=== PATIENT | female | born 1995 | race Caucasian/White ===

== ENCOUNTER 2017-02-22 00:05 | Emergency (ER) | payer SELFPAY ==
[~2017-02-22] VITALS: Ht 177.8 cm; Wt 95.5 kg
[2017-02-22 00:05] VITALS: TEMP 97.3
[2017-02-22 00:51] LABS: BASO # 0.1 (0.0-0.2); BASO % 1.1 % (0.0-2.0); EOS # 0.5 (0.0-0.7); EOS % 5.4 % (0-4.0); GRAN # 4.8 (1.4-6.5); GRAN % 50.9 % (42.2-75.2); HEMATOCRIT 37.1 % (35.0-45.0); HEMOGLOBIN 12.1 g/dl (12.0-15.0); LYMPH # 3.3 (1.2-3.4); LYMPH % 34.5 % (20.0-51.0); MEAN CELL VOLUME 92 fl (80.0-95.0); MEAN CORPUSCULAR HEMOGLOBIN 30 pg (26.0-32.0); MEAN CORPUSCULAR HGB CONC 33 g/dl (33.0-37.0); MEAN PLATELET VOLUME 9.8 fl (7.4-10.4); MONO # 0.7 (0.1-0.6); MONO % 7.7 % (1.7-9.3); PLATELET COUNT 255 K/mm3 (130-400); RED BLOOD COUNT 4.03 M/mm3 (4.10-5.30); WHITE BLOOD COUNT 9.5 K/mm3 (4.8-10.8)
[2017-02-22 01:04] LABS: ADJUSTED CALCIUM 8.7 mg/dL (8.4-10.2); ALBUMIN 3.6 gm/dL (3.5-5.0); BILIRUBIN,TOTAL 0.4 mg/dL (0.0-1.0); CALCIUM 8.4 mg/dL (8.4-10.2); CREATININE, serum 0.74 mg/dL (0.52-1.25); POTASSIUM 3.1 mmol/L (3.4-5.0); TOTAL PROTEIN 6.3 gm/dL (6.4-8.2)
[2017-02-22] MEDS ORDERED: CELEXA 20MG20 MG/TAB PO (01:10)
[2017-02-22 03:20] VITALS: BP 131/71; PULSE 77
== END 2017-02-22 03:07 | disposition home or self-care (01) ==
LOC: COL.ER 00:05
PROVIDERS: Emergency Medicine
DX: F10.129 Alcohol abuse with intoxication, unspecified (principal)
CPT/HCPCS: J7030

== ENCOUNTER 2017-11-11 12:48 | Emergency (ER) | payer OTHER ==
[~2017-11-11] VITALS: Ht 180.3 cm; Wt 95.5 kg
[~2017-11-11 12:48] MED LIST: CELEXA 20MG20 MG/TAB PO
[2017-11-11 12:50] VITALS: BP 129/72; PULSE 95; TEMP 97.8
[2017-11-11] MEDS ORDERED: MIRENA52 MG IY (13:05)
[2017-11-11] MEDS ORDERED: BACTRIM DS 8001 TAB PO (13:38)
== END 2017-11-11 13:46 | disposition home or self-care (01) ==
LOC: COL.ER 12:48
DX: L05.01 Pilonidal cyst with abscess (principal); F41.9 Anxiety disorder, unspecified; F32.9 Major depressive disorder, single episode, unspecified

== ENCOUNTER 2018-03-21 10:28 | Emergency (ER) | payer OTHER ==
[~2018-03-21] VITALS: Ht 175.3 cm; Wt 104.5 kg
[~2018-03-21 10:28] MED LIST changes: +BACTRIM DS 8001 TAB PO; +MIRENA52 MG IY
[2018-03-21 10:30] VITALS: BP 131/58; TEMP 99.5
[2018-03-21 11:28] VITALS: PULSE 99
== END 2018-03-21 11:28 | disposition home or self-care (01) ==
LOC: COL.ER 10:28
DX: L05.01 Pilonidal cyst with abscess (principal); Z98.818 Other dental procedure status

== ENCOUNTER 2018-06-01 08:25 | Day surgery (SDC) | payer OTHER ==
[~2018-06-01] VITALS: Ht 177.8 cm; Wt 106.3 kg
[2018-06-01 08:47] VITALS: BP 103/68; PULSE 92; TEMP 98.2
[2018-06-01] MEDS ORDERED: MOTRIN 600600 MG/TAB PO (12:04)
[2018-06-01] MEDS ORDERED: NORCO 325 MG-51 TAB PO (12:04)
[2018-06-01] MEDS ORDERED: COLACE 100100 MG/CAP PO (12:04)
[2018-06-01 12:37] VITALS: BP 110/49; PULSE 70; TEMP 97.9
[2018-06-01 13:00] VITALS: BP 112/61; PULSE 68
[2018-06-01 13:15] VITALS: BP 108/60; PULSE 74
== END 2018-06-01 13:40 | disposition home or self-care (01) ==
LOC: SDCO 08:25
DX: L05.01 Pilonidal cyst with abscess (principal); D64.9 Anemia, unspecified; F32.9 Major depressive disorder, single episode, unspecified; F41.9 Anxiety disorder, unspecified; F42.9 Obsessive-compulsive disorder, unspecified; M41.9 Scoliosis, unspecified
CPT/HCPCS: J1885; J2405; J2704; J3010; J7120

== ENCOUNTER 2018-06-06 11:01 | Emergency (ER) | payer OTHER ==
[~2018-06-06] VITALS: Ht 177.8 cm; Wt 104.5 kg
[~2018-06-06 11:01] MED LIST changes: +COLACE 100100 MG/CAP PO; +MOTRIN 600600 MG/TAB PO; +NORCO 325 MG-51 TAB PO
[2018-06-06 11:05] VITALS: BP 123/69; TEMP 98.1
[2018-06-06] MEDS ORDERED: BACTRIM DS 8001 TAB PO (11:29)
[2018-06-06 11:36] VITALS: PULSE 94
== END 2018-06-06 11:37 | disposition home or self-care (01) ==
LOC: COL.ER 11:01
DX: M25.559 Pain in unspecified hip (principal); F32.9 Major depressive disorder, single episode, unspecified

== ENCOUNTER 2018-07-18 12:10 | Emergency (ER) | payer OTHER ==
[~2018-07-18] VITALS: Ht 177.8 cm; Wt 104.5 kg
[2018-07-18 12:12] VITALS: TEMP 98.6
[2018-07-18 12:38] LABS: BASO # 0.1 (0.0-0.2); BASO % 0.9 % (0.0-2.0); EOS # 0.2 (0.0-0.7); EOS % 2.2 % (0-4.0); GRAN # 3.9 (1.4-6.5); GRAN % 57.2 % (42.2-75.2); HEMOGLOBIN 12.5 g/dl (12.0-15.0); LYMPH # 2.2 (1.2-3.4); LYMPH % 31.9 % (20.0-51.0); MEAN CELL VOLUME 91 fl (80.0-95.0); MEAN CORPUSCULAR HEMOGLOBIN 31 pg (26.0-32.0); MEAN CORPUSCULAR HGB CONC 34 g/dl (33.0-37.0); MEAN PLATELET VOLUME 9.5 fl (7.4-10.4); MONO # 0.5 (0.1-0.6); MONO % 7.5 % (1.7-9.3); PLATELET COUNT 246 K/mm3 (130-400); RED BLOOD COUNT 4.05 M/mm3 (4.10-5.30); REDCELL DISTRIBUTION WIDTH-CV 11.9 % (11.5-14.5)
[2018-07-18 12:49] LABS: ALANINE AMINOTRANSFERASE 17 U/L (9-52); ALBUMIN 3.6 gm/dL (3.5-5.0); ALKALINE PHOSPHATASE 58 U/L (50-136); ANION GAP 8 mmol/L (7-16); AST,SGOT 19 U/L (15-37); BILIRUBIN,TOTAL 0.4 mg/dL (0.0-1.0); BLOOD UREA NITROGEN 16 mg/dL (7-17); C-REACTIVE PROTEIN < 0.5 mg/dL (0.0-0.9); CALCIUM 9.1 mg/dL (8.4-10.2); CARBON DIOXIDE 24 mmol/L (22-30); CHLORIDE 108 mmol/L (98-107); CREATININE, serum 0.79 mg/dL (0.52-1.25); GLUCOSE 85 mg/dL (74-106); POTASSIUM 3.8 mmol/L (3.4-5.0); SODIUM 139 mmol/L (137-145); TOTAL PROTEIN 6.5 gm/dL (6.4-8.2)
[2018-07-18 13:21] VITALS: BP 122/62; PULSE 60
== END 2018-07-18 13:22 | disposition home or self-care (01) ==
LOC: COL.ER 12:10
PROVIDERS: Physician Assistant
DX: R55 Syncope and collapse (principal)

== ENCOUNTER 2018-07-23 19:05 | Emergency (ER) | payer OTHER ==
[~2018-07-23] VITALS: Ht 177.8 cm; Wt 104.5 kg
[2018-07-23 19:07] VITALS: TEMP 98
[2018-07-23 19:41] LABS: BASO # 0.1 (0.0-0.2); BASO % 0.7 % (0.0-2.0); EOS # 0.2 (0.0-0.7); EOS % 1.7 % (0-4.0); GRAN # 5.8 (1.4-6.5); GRAN % 62.5 % (42.2-75.2); HEMATOCRIT 39.5 % (35.0-45.0); HEMOGLOBIN 13.3 g/dl (12.0-15.0); LYMPH # 2.6 (1.2-3.4); LYMPH % 28.2 % (20.0-51.0); MEAN CELL VOLUME 92 fl (80.0-95.0); MEAN CORPUSCULAR HEMOGLOBIN 31 pg (26.0-32.0); MEAN CORPUSCULAR HGB CONC 34 g/dl (33.0-37.0); MEAN PLATELET VOLUME 9.5 fl (7.4-10.4); MONO # 0.6 (0.1-0.6); MONO % 6.6 % (1.7-9.3); PLATELET COUNT 282 K/mm3 (130-400); REDCELL DISTRIBUTION WIDTH-CV 11.9 % (11.5-14.5)
[2018-07-23 19:58] LABS: ALANINE AMINOTRANSFERASE 19 U/L (9-52); ALBUMIN 4.1 gm/dL (3.5-5.0); ALKALINE PHOSPHATASE 67 U/L (50-136); ANION GAP 7 mmol/L (7-16); AST,SGOT 21 U/L (15-37); BILIRUBIN,TOTAL 0.3 mg/dL (0.0-1.0); BLOOD UREA NITROGEN 13 mg/dL (7-17); CALCIUM 9.6 mg/dL (8.4-10.2); CARBON DIOXIDE 25 mmol/L (22-30); CHLORIDE 105 mmol/L (98-107); CREATININE, serum 0.76 mg/dL (0.52-1.25); GLUCOSE 97 mg/dL (74-106); POTASSIUM 3.9 mmol/L (3.4-5.0); SODIUM 137 mmol/L (137-145); TOTAL PROTEIN 7.3 gm/dL (6.4-8.2)
[2018-07-23 20:00] LABS: C-REACTIVE PROTEIN < 0.5 mg/dL (0.0-0.9)
[2018-07-23 20:11] LABS: TROPONIN-I < 0.012 ng/mL (0.000-0.035)
[2018-07-23 20:41] VITALS: BP 115/75; PULSE 66
== END 2018-07-23 20:43 | disposition home or self-care (01) ==
LOC: COL.ER 19:05
PROVIDERS: Emergency Medicine
DX: R07.89 Other chest pain (principal); F32.9 Major depressive disorder, single episode, unspecified